=== PATIENT | female | born 1935 | race Two or more races ===

== ENCOUNTER 2016-09-02 10:53 | Inpatient (IN) | payer MEDICARE ==
[~2016-09-02 10:53] MED LIST: ADVAIR 25028 BLISTE1 INH; ADVAIR HFA 2301 PUFF INH; AMBIEN10 M1 PO; ASPIR-LOW81 M1 PO; AUGMENTIN XR 11 EACH PO; CODEINE-GUAIFE120 M1 PO; CYMBALTA60 M1 PO; FOLIC ACID0.8 M1 PO; HYDRALAZINE HCL50 M1 PO; HYDROXYCHLOROQ200 M2 PO; ISOSORBIDE MONO30 M4 PO; LANTUS SOL100 UNIT/1 SC; LOPRESSOR100 M1 PO; MULTIVITAMINS1 EAC6 PO; NEURONTIN600 M1 PO; NORCO 10-325 T1 EACH PO; NOVOLOG100 UNITS/ SC; NYSTATIN100000 UNI SSW; OMEPRAZOLE40 M2 PO; PACERONE200 M1 PO; PLAVIX75 M1 PO; PREDNISONE10 M1 PO; PREDNISONE2.5 M1 PO; RASUVO 1010 MG/0.2 SQ; SINGULAIR10 M1 PO; VITAMIN C500 M3 PO; VITAMIN D2000 UNIT PO; XANAX1 M1 PO; XARELTO15 M1 PO; ZESTRIL40 M2 PO; [UNRECOGNIZED DRUG - REMARK] PO
[2016-09-02] MEDS ORDERED: METHOTREXATE2.5 M1 PO (11:24)
[2016-09-02] MEDS ORDERED: PREDNISONE2.5 M1 PO (11:30)
[2016-09-02] MEDS ORDERED: HUMALOG100 UNIT/2 SC (11:32)
[2016-09-02] MEDS ORDERED: MACRODANTIN50 M2 PO (11:36)
[2016-09-02] MEDS ORDERED: MECLIZINE HCL12.5 M3 PO (11:37)
[2016-09-02] MEDS ORDERED: LASIX80 M1 PO (11:39)
[2016-09-02] MEDS ORDERED: PROTONIX40 M2 PO (11:40)
[2016-09-02] MEDS ORDERED: DOCUSATE SODIU100 M2 PO (11:44)
[2016-09-02] MEDS ORDERED: TYLENOL325 M2 PO (11:44)
[2016-09-02 11:48] LABS: URINE BILIRUBIN NEGATIVE (NEG); URINE BLOOD MODERATE (NEG); URINE GLUCOSE (UA) MODERATE (NEG); URINE KETONE NEGATIVE (NEG); URINE LEUKOCYTE ESTERASE POSITIVE (NEG); URINE NITRITE POSITIVE (NEG)
[2016-09-02 11:49] LABS: URINE APPEARANCE CLOUDY; URINE COLOR YELLOW; URINE SPECIFIC GRAVITY 1.016 (1.003-1.030)
[2016-09-02 11:55] LABS: URINE PROT SULFOSALICYLIC ACID 1+ (NEG)
[2016-09-02 11:56] LABS: URINE BACTERIA 4+; URINE EPITHELIAL CELLS 0 /[HPF] (0-10); URINE RBC 0-2 /[HPF] (0-5); URINE WBC FULL FIELD /[HPF] (0-5)
[2016-09-02 12:05] LABS: BASO % 0.2 % (0-2); EOS % 0.4 % (0-7); HCT-HEMATOCRIT 33.3 % (34.0-49.0); HGB-HEMOGLOBIN 10.4 gm/dl (12.0-15.5); IMMATURE GRANULOCYTES ABSOLUTE 0.02 tho/cmm (0-0.03); IMMATURE GRANULOCYTES PERCENT 0.2 % (0-0.3); LYMPH % 9.4 % (20-45); MCH (MEAN CORPUSCULAR HGB) 31.2 pg (28.0-32.0); MCHC MEAN CORPUSCULAR HGB CONC 31.2 % (32.0-36.0); MEAN PLATELET VOLUME 10.5 cmc (9.4-12.4); MONO % 5.2 % (0-12); MONOCYTE ABSOLUTE COUNT 0.6 tho/cmm (0.0-1.2); NEUTROPHIL ABSOLUTE COUNT 9.1 tho/cmm (1.6-8.0); NEUTROPHIL-AUTOMATED 9.1 tho/cmm (1.6-8.0); NEUTROPHILS % 84.6 % (40-80); PLATELET COUNT 297 tho/cmm (150-450); RED BLOOD COUNT 3.33 mil/cmm (4.00-5.20); RED CELL DISTRIBUTION WIDTH 15.5 % (12.4-16.4); WHITE BLOOD COUNT 10.8 tho/cmm (4.0-10.0)
[2016-09-02] MEDS ORDERED: FEOSOL325 M1 PO (12:20)
[2016-09-02] MEDS ORDERED: DILAUDID2 M1 PO (12:23)
[2016-09-02 12:35] LABS: ALBUMIN 3.8 g/dl (3.5-5.0); ALKALINE PHOSPHATASE 63 U/L (33-138); ALT/SGPT 26 U/L (12-78); ANION GAP 9 mmol/L (0-20); AST/SGOT 22 U/L (10-40); BILIRUBIN,TOTAL 0.6 mg/dl (0-1.5); BLOOD UREA NITROGEN 31 mg/dl (6-24); C-REACTIVE PROTEIN 10.3 mg/dl (0-0.9); CALCIUM 9.5 mg/dl (8.5-10.5); CARBON DIOXIDE-VENOUS 34 mmol/L (22-32); CHLORIDE 105 mmol/l (96-110); CREATININE 0.98 mg/dl (0.50-1.10); GLUCOSE 122 mg/dL (70-110); POTASSIUM 4.3 mmol/L (3.7-5.1); SODIUM 144 mmol/L (135-145); eGFR VALUE FOR BLACK >60 mL/Min
[2016-09-02 12:45] LABS: PROCALCITONIN 0.08 ng/ml (0.05-0.09)
[2016-09-02 13:29] LABS: INR 1.1 INR (0.9-1.1)
[2016-09-03 07:13] LABS: ANION GAP 10 mmol/L (0-20); BLOOD UREA NITROGEN 17 mg/dl (6-24); CALCIUM 8.7 mg/dl (8.5-10.5); CARBON DIOXIDE-VENOUS 33 mmol/L (22-32); CHLORIDE 105 mmol/l (96-110); CREATININE 0.75 mg/dl (0.50-1.10); GLUCOSE 160 mg/dL (70-110); POTASSIUM 4.6 mmol/L (3.7-5.1); SODIUM 143 mmol/L (135-145); eGFR VALUE FOR BLACK >60 mL/Min
[2016-09-03 07:16] LABS: BASO % 0.2 % (0-2); EOS % 1.5 % (0-7); EOSINOPHIL ABSOLUTE COUNT 0.1 tho/cmm (0.0-0.7); HCT-HEMATOCRIT 30.3 % (34.0-49.0); HGB-HEMOGLOBIN 9.4 gm/dl (12.0-15.5); IMMATURE GRANULOCYTES ABSOLUTE 0.01 tho/cmm (0-0.03); IMMATURE GRANULOCYTES PERCENT 0.2 % (0-0.3); LYMPH % 15.1 % (20-45); MCH (MEAN CORPUSCULAR HGB) 31.5 pg (28.0-32.0); MCV (MEAN CELL VOLUME) 101.7 fl (82.0-96.0); MEAN PLATELET VOLUME 10.8 cmc (9.4-12.4); MONO % 7.6 % (0-12); MONOCYTE ABSOLUTE COUNT 0.5 tho/cmm (0.0-1.2); NEUTROPHIL ABSOLUTE COUNT 4.9 tho/cmm (1.6-8.0); NEUTROPHIL-AUTOMATED 4.9 tho/cmm (1.6-8.0); NEUTROPHILS % 75.4 % (40-80); PLATELET COUNT 274 tho/cmm (150-450); RED BLOOD COUNT 2.98 mil/cmm (4.00-5.20); RED CELL DISTRIBUTION WIDTH 15.6 % (12.4-16.4); WHITE BLOOD COUNT 6.5 tho/cmm (4.0-10.0)
[2016-09-04 05:56] LABS: ANION GAP 10 mmol/L (0-20); CALCIUM 8.3 mg/dl (8.5-10.5); CARBON DIOXIDE-VENOUS 30 mmol/L (22-32); CHLORIDE 102 mmol/l (96-110); CREATININE 0.92 mg/dl (0.50-1.10); GLUCOSE 120 mg/dL (70-110); POTASSIUM 4.3 mmol/L (3.7-5.1); SODIUM 138 mmol/L (135-145); eGFR VALUE FOR BLACK >60 mL/Min
[2016-09-04 06:06] LABS: BLOOD UREA NITROGEN 29 mg/dl (6-24)
[2016-09-04] MEDS ORDERED: CIPRO250 M2 PO (13:52)
[2016-09-05] MEDS ORDERED: COMBIVENT RESPIM4 G1 INH (13:58)
[2016-09-05] MEDS ORDERED: SENOKOT-S TABL1 EACH PO (14:06)
[2016-09-05] MEDS ORDERED: ANALGESIC BALM30 G2 EXT (14:09)
[2016-09-05] MEDS ORDERED: KEFLEX500 M4 PO (14:11)
[2016-09-05] MEDS ORDERED: IPRAT-ALBUT 0.5-3 ML INH (14:12)
[2016-09-05] MEDS ORDERED: MELATONIN3 M4 PO (14:36)
[2016-09-05] MEDS ORDERED: IPRAT-ALBUT 0.5-3 ML PO (14:41)
[2016-12-30] MEDS ORDERED: AMBIEN10 M1 PO (10:17)
[2016-12-30] MEDS ORDERED: ASPIRIN EC81 MG PO (10:18)
[2016-12-30] MEDS ORDERED: BROVANA15 MCG/22 INH (10:18)
[2016-12-30] MEDS ORDERED: COREG25 M1 PO (10:19)
[2016-12-30] MEDS ORDERED: CYMBALTA30 M1 PO (10:19)
[2016-12-30] MEDS ORDERED: IPRAT-ALBUT 0.5-3 ML INH (10:20)
[2016-12-30] MEDS ORDERED: FEROSUL325 M1 PO (10:21)
[2016-12-30] MEDS ORDERED: NEURONTIN600 M1 PO (10:21)
[2016-12-30] MEDS ORDERED: FOLIC ACID1 M1 PO (10:21)
[2016-12-30] MEDS ORDERED: HYDRALAZINE HCL50 M1 PO (10:22)
[2016-12-30] MEDS ORDERED: PLAQUENIL200 M1 PO (10:23)
[2016-12-30] MEDS ORDERED: ISOSORBIDE MONO30 M4 PO (10:24)
[2016-12-30] MEDS ORDERED: PRINIVIL20 M1 PO (10:26)
[2016-12-30] MEDS ORDERED: LASIX80 M1 PO (10:26)
[2016-12-30] MEDS ORDERED: LEVEMIR100 UNITS/ SC (10:26)
[2016-12-30] MEDS ORDERED: MULTI VITAMIN1 EAC2 PO (10:31)
[2016-12-30] MEDS ORDERED: TREXALL10 M1 PO (10:31)
[2016-12-30] MEDS ORDERED: NOVOLOG100 UNITS/ SC ×2 (10:33)
[2016-12-30] MEDS ORDERED: SILVADENE20 G1 TP (10:34)
[2016-12-30] MEDS ORDERED: PROTONIX40 M2 PO (10:34)
[2016-12-30] MEDS ORDERED: PULMICORT0.5 MG/22 INH (10:34)
[2016-12-30] MEDS ORDERED: SINGULAIR10 M1 PO (10:35)
[2017-01-16] MEDS ORDERED: COLACE100 M1 PO (14:00)
[2017-01-16] MEDS ORDERED: LASIX20 M1 PO (14:02)
[2017-01-22] MEDS ORDERED: PRINIVIL10 M1 PO (09:49)
[2017-01-22] MEDS ORDERED: MELATONIN3 M4 PO (09:54)
[2017-01-22] MEDS ORDERED: MILK OF MAGNESIA PO (09:55)
[2017-01-22] MEDS ORDERED: MIRALAX17 G2 PO (09:56)
[2017-01-22] MEDS ORDERED: ULTRAM50 M1 PO (09:57)
[2017-01-22] MEDS ORDERED: TYLENOL325 M2 PO (09:59)
[2017-01-22] MEDS ORDERED: LEVEMIR100 UNITS/ SC (10:01)
[2017-01-22] MEDS ORDERED: SILVADENE20 G1 TOP (10:03)
[2017-01-28] MEDS ORDERED: LEVAQUIN750 M1 PO (10:26)
[2017-01-28] MEDS ORDERED: POTASSIUM CHLO20 ME3 PO (10:27)
[2017-01-28] MEDS ORDERED: LASIX20 M1 PO (10:27)
[2017-01-28] MEDS ORDERED: HUMALOG100 UNITS/ (10:46)
[2017-01-28] MEDS ORDERED: MUCINEX600 M1 PO (13:12)
== END 2016-09-05 14:50 | DRG 690 ==
LOC: EDMED 10:53 → EMR2 15:24 → 5WE 18:07
PROVIDERS: Emergency Medicine; ADMIT Hospitalist
DX: N39.0 Urinary tract infection, site not specified (principal); J96.11 Chronic respiratory failure with hypoxia; L03.115 Cellulitis of right lower limb; E11.40 Type 2 diabetes mellitus with diabetic neuropathy, unspecified; Z99.81 Dependence on supplemental oxygen; Z68.42 Body mass index [BMI] 45.0-49.9, adult; E86.0 Dehydration; I48.0 Paroxysmal atrial fibrillation; I10 Essential (primary) hypertension; B96.89 Other specified bacterial agents as the cause of diseases classified elsewhere; G89.4 Chronic pain syndrome; R60.9 Edema, unspecified; E66.9 Obesity, unspecified; D63.8 Anemia in other chronic diseases classified elsewhere; M06.9 Rheumatoid arthritis, unspecified; R29.6 Repeated falls; F32.9 Major depressive disorder, single episode, unspecified; J45.909 Unspecified asthma, uncomplicated; M54.5 Low back pain; I25.10 Atherosclerotic heart disease of native coronary artery without angina pectoris; R53.81 Other malaise; I87.8 Other specified disorders of veins; K59.00 Constipation, unspecified; S80.11XA Contusion of right lower leg, initial encounter; W19.XXXA Unspecified fall, initial encounter; Y92.009 Unspecified place in unspecified non-institutional (private) residence as the place of occurrence of the external cause; Z86.73 Personal history of transient ischemic attack (TIA), and cerebral infarction without residual deficits; Z79.899 Other long term (current) drug therapy; Z95.1 Presence of aortocoronary bypass graft; Z95.5 Presence of coronary angioplasty implant and graft; Z77.22 Contact with and (suspected) exposure to environmental tobacco smoke (acute) (chronic); Z92.25 Personal history of immunosuppression therapy; Z79.891 Long term (current) use of opiate analgesic; Z79.4 Long term (current) use of insulin; Z91.81 History of falling; Z79.01 Long term (current) use of anticoagulants
CPT/HCPCS: J0696; J1815; J3370; J7030; J7050; J7512; P9612

== ENCOUNTER 2016-12-18 18:25 | Inpatient (IN) | payer MEDICARE ==
[~2016-12-18 18:25] MED LIST changes: +ANALGESIC BALM30 G2 EXT; +CIPRO250 M2 PO; +COMBIVENT RESPIM4 G1 INH; +DILAUDID2 M1 PO; +DOCUSATE SODIU100 M2 PO; +FEOSOL325 M1 PO; +HUMALOG100 UNIT/2 SC; +IPRAT-ALBUT 0.5-3 ML INH; +IPRAT-ALBUT 0.5-3 ML PO; +KEFLEX500 M4 PO; +LASIX80 M1 PO; +MACRODANTIN50 M2 PO; +MECLIZINE HCL12.5 M3 PO; +MELATONIN3 M4 PO; +METHOTREXATE2.5 M1 PO; +PROTONIX40 M2 PO; +SENOKOT-S TABL1 EACH PO; +TYLENOL325 M2 PO
[2016-12-18 18:57] LABS: BASO % 0.2 % (0-2); EOS % 1.4 % (0-7); EOSINOPHIL ABSOLUTE COUNT 0.1 tho/cmm (0.0-0.7); HCT-HEMATOCRIT 28.3 % (34.0-49.0); HGB-HEMOGLOBIN 8.6 gm/dl (12.0-15.5); IMMATURE GRANULOCYTES ABSOLUTE 0.02 tho/cmm (0-0.03); IMMATURE GRANULOCYTES PERCENT 0.2 % (0-0.3); LYMPH % 18.6 % (20-45); LYMPH ABSOLUTE COUNT 1.8 tho/cmm (0.8-4.5); MCH (MEAN CORPUSCULAR HGB) 29.7 pg (28.0-32.0); MCHC MEAN CORPUSCULAR HGB CONC 30.4 % (32.0-36.0); MCV (MEAN CELL VOLUME) 97.6 fl (82.0-96.0); MEAN PLATELET VOLUME 10.8 cmc (9.4-12.4); MONOCYTE ABSOLUTE COUNT 1.5 tho/cmm (0.0-1.2); NEUTROPHILS % 63.6 % (40-80); PLATELET COUNT 220 tho/cmm (150-450); RED CELL DISTRIBUTION WIDTH 15.1 % (12.4-16.4); WHITE BLOOD COUNT 9.4 tho/cmm (4.0-10.0)
[2016-12-18 19:13] LABS: ALB/GLOB RATIO 0.7 (0.8-2.0); ALKALINE PHOSPHATASE 51 U/L (33-138); ALT/SGPT 21 U/L (12-78); ANION GAP 12 mmol/L (0-20); AST/SGOT 15 U/L (10-40); BILIRUBIN,TOTAL 0.5 mg/dl (0-1.5); BLOOD UREA NITROGEN 35 mg/dl (6-24); CALCIUM 8.9 mg/dl (8.5-10.5); CARBON DIOXIDE-VENOUS 33 mmol/L (22-32); CHLORIDE 100 mmol/l (96-110); CREATININE 1.35 mg/dl (0.50-1.10); GLUCOSE 102 mg/dL (70-110); POTASSIUM 4.3 mmol/L (3.7-5.1); SODIUM 141 mmol/L (135-145); eGFR VALUE FOR BLACK 43 mL/Min
[2016-12-18 19:20] LABS: URINE APPEARANCE CLEAR; URINE BILIRUBIN NEGATIVE (NEG); URINE BLOOD NEGATIVE (NEG); URINE COLOR YELLOW; URINE GLUCOSE (UA) NEGATIVE (NEG); URINE KETONE NEGATIVE (NEG); URINE LEUKOCYTE ESTERASE POSITIVE (NEG); URINE NITRITE NEGATIVE (NEG); URINE PROTEIN MODERATE (NEG)
[2016-12-18 19:24] LABS: URINE EPITHELIAL CELLS 0-1 /[HPF] (0-10); URINE RBC 0 /[HPF] (0-5); URINE WBC 0-2 /[HPF] (0-5)
[2016-12-18 19:30] LABS: PROCALCITONIN 0.18 ng/ml (0.05-0.09)
[2016-12-18] MEDS ORDERED: TYLENOL EXTRA500 M1 PO (20:08)
[2016-12-18 21:52] LABS: MAGNESIUM 2.1 mg/dl (1.8-2.6)
[2016-12-19 05:42] LABS: BASO % 0.3 % (0-2); EOS % 2.2 % (0-7); EOSINOPHIL ABSOLUTE COUNT 0.3 tho/cmm (0.0-0.7); HCT-HEMATOCRIT 27.8 % (34.0-49.0); HGB-HEMOGLOBIN 8.4 gm/dl (12.0-15.5); IMMATURE GRANULOCYTES ABSOLUTE 0.03 tho/cmm (0-0.03); IMMATURE GRANULOCYTES PERCENT 0.3 % (0-0.3); LYMPH % 15.3 % (20-45); LYMPH ABSOLUTE COUNT 1.7 tho/cmm (0.8-4.5); MCH (MEAN CORPUSCULAR HGB) 29.8 pg (28.0-32.0); MCHC MEAN CORPUSCULAR HGB CONC 30.2 % (32.0-36.0); MCV (MEAN CELL VOLUME) 98.6 fl (82.0-96.0); MEAN PLATELET VOLUME 10.9 cmc (9.4-12.4); MONO % 14.9 % (0-12); MONOCYTE ABSOLUTE COUNT 1.7 tho/cmm (0.0-1.2); NEUTROPHIL ABSOLUTE COUNT 7.5 tho/cmm (1.6-8.0); NEUTROPHIL-AUTOMATED 7.5 tho/cmm (1.6-8.0); PLATELET COUNT 206 tho/cmm (150-450); RED BLOOD COUNT 2.82 mil/cmm (4.00-5.20); RED CELL DISTRIBUTION WIDTH 15.3 % (12.4-16.4); WHITE BLOOD COUNT 11.2 tho/cmm (4.0-10.0)
[2016-12-19 05:57] LABS: BLOOD UREA NITROGEN 34 mg/dl (6-24); CALCIUM 8.9 mg/dl (8.5-10.5); CARBON DIOXIDE-VENOUS 30 mmol/L (22-32); CHLORIDE 104 mmol/l (96-110); CREATININE 1.27 mg/dl (0.50-1.10); SODIUM 140 mmol/L (135-145); eGFR VALUE FOR BLACK 46 mL/Min
[2016-12-19 06:02] LABS: ANION GAP 11 mmol/L (0-20); GLUCOSE 267 mg/dL (70-110); POTASSIUM 4.7 mmol/L (3.7-5.1)
--- NOTE | 2016-12-19 09:14 | NUR ---
VIRTUAL CARE NOTE: CHECKED IN ON PT AT THIS TIME. HAS NO FAMILY PRESENT. NOTED TREMORS, WHICH ARE NEW FOR PT. SOME ANXIETY WELL. RECIEVES PHONE CALL FROM FAMILY. WILL CONTINUE TO MONITOR. ORDERS FROM IMS TO CHECK LABWORK IN AM. AWAITING ROUNDS FROM SURGEON. ELECTRONIC CHART REVIEW. PT'S CALL LIGHT IS WITHIN REACH.
--- NOTE | 2016-12-19 20:22 | NUR ---
LUCAS AVELAR-VISITED WITH PATIENT AND SON KAI. PATIENT LAYING COMFORTABLY IN BED STAYING HER PAIN IS STAYING CONTROLLED. KAI HAS SIGNED THE CONSENT FOR THE I&D TOMORROW. WE DISCUSSED HER CONFUSION AND IT POSSIBLY BEING THE PAIN MEDS SO WILL TRY JUST TYLENOL TONIGHT UNLESS PATIENT IS IN A LOT OF PAIN. KAI SAID SHE IS MORE ALERT NOW AND SEEMS TO BE DOING BETTER WITH EXCEPTION OF BREATHING BEING A LITTLE LABORED. RT WAS JUST IN DOING A BREATHING TX. SANDY THE OTHER SON WILL BE HERE LATER TONIGHT WITH THE PATIENT.
[2016-12-20 04:49] LABS: BASO % 0.5 % (0-2); BASO ABSOLUTE COUNT 0.1 tho/cmm (0.0-0.2); EOS % 0.4 % (0-7); HGB-HEMOGLOBIN 8.2 gm/dl (12.0-15.5); IMMATURE GRANULOCYTES ABSOLUTE 0.02 tho/cmm (0-0.03); IMMATURE GRANULOCYTES PERCENT 0.2 % (0-0.3); LYMPH % 11.5 % (20-45); LYMPH ABSOLUTE COUNT 1.1 tho/cmm (0.8-4.5); MCH (MEAN CORPUSCULAR HGB) 29.9 pg (28.0-32.0); MCHC MEAN CORPUSCULAR HGB CONC 30.4 % (32.0-36.0); MCV (MEAN CELL VOLUME) 98.5 fl (82.0-96.0); MEAN PLATELET VOLUME 10.3 cmc (9.4-12.4); MONO % 13.1 % (0-12); MONOCYTE ABSOLUTE COUNT 1.2 tho/cmm (0.0-1.2); NEUTROPHIL ABSOLUTE COUNT 6.9 tho/cmm (1.6-8.0); NEUTROPHIL-AUTOMATED 6.9 tho/cmm (1.6-8.0); NEUTROPHILS % 74.3 % (40-80); PLATELET COUNT 219 tho/cmm (150-450); RED BLOOD COUNT 2.74 mil/cmm (4.00-5.20); RED CELL DISTRIBUTION WIDTH 15.4 % (12.4-16.4); WHITE BLOOD COUNT 9.3 tho/cmm (4.0-10.0)
[2016-12-20 05:04] LABS: ANION GAP 11 mmol/L (0-20); BLOOD UREA NITROGEN 28 mg/dl (6-24); CALCIUM 9.1 mg/dl (8.5-10.5); CARBON DIOXIDE-VENOUS 32 mmol/L (22-32); CHLORIDE 107 mmol/l (96-110); CREATININE 1.04 mg/dl (0.50-1.10); GLUCOSE 144 mg/dL (70-110); POTASSIUM 4.2 mmol/L (3.7-5.1); SODIUM 146 mmol/L (135-145); eGFR VALUE FOR BLACK 58 mL/Min
[2016-12-20 14:46] LABS: ABG CO2 ARTERIAL 32 mmol/L (21-27); ARTERIAL BLD GAS O2 SATURATION 96 % (95-98); ARTERIAL BLOOD GAS PCO2 44 mmHg (32-45); ARTERIAL PO2 69 mmHg (70-100); BICARBONATE 31 mmol/L (21-28); BLOOD GAS BASE EXCESS 7 mM/L (-/+3); PH 7.46 Units (7.35-7.45)
[2016-12-20 16:40] LABS: ALB/GLOB RATIO 0.6 (0.8-2.0); ALBUMIN 2.9 g/dl (3.5-5.0); ALKALINE PHOSPHATASE 61 U/L (33-138); ALT/SGPT 20 U/L (12-78); ANION GAP 14 mmol/L (0-20); AST/SGOT 15 U/L (10-40); BLOOD UREA NITROGEN 25 mg/dl (6-24); CALCIUM 9.4 mg/dl (8.5-10.5); CARBON DIOXIDE-VENOUS 30 mmol/L (22-32); CHLORIDE 105 mmol/l (96-110); CREATININE 0.99 mg/dl (0.50-1.10); POTASSIUM 4.1 mmol/L (3.7-5.1); SODIUM 145 mmol/L (135-145); eGFR VALUE FOR BLACK 62 mL/Min
[2016-12-20 16:42] LABS: BILIRUBIN,TOTAL 0.8 mg/dl (0-1.5); GLUCOSE 258 mg/dL (70-110)
[2016-12-20 16:48] LABS: BASO % 0.3 % (0-2); EOS % 0.2 % (0-7); HCT-HEMATOCRIT 27.9 % (34.0-49.0); HGB-HEMOGLOBIN 8.4 gm/dl (12.0-15.5); IMMATURE GRANULOCYTES ABSOLUTE 0.02 tho/cmm (0-0.03); IMMATURE GRANULOCYTES PERCENT 0.2 % (0-0.3); LYMPH ABSOLUTE COUNT 1.4 tho/cmm (0.8-4.5); MCH (MEAN CORPUSCULAR HGB) 29.7 pg (28.0-32.0); MCHC MEAN CORPUSCULAR HGB CONC 30.1 % (32.0-36.0); MCV (MEAN CELL VOLUME) 98.6 fl (82.0-96.0); MEAN PLATELET VOLUME 10.7 cmc (9.4-12.4); MONOCYTE ABSOLUTE COUNT 1.3 tho/cmm (0.0-1.2); NEUTROPHIL ABSOLUTE COUNT 8.7 tho/cmm (1.6-8.0); NEUTROPHIL-AUTOMATED 8.7 tho/cmm (1.6-8.0); NEUTROPHILS % 76.3 % (40-80); PLATELET COUNT 228 tho/cmm (150-450); RED BLOOD COUNT 2.83 mil/cmm (4.00-5.20); RED CELL DISTRIBUTION WIDTH 15.2 % (12.4-16.4); WHITE BLOOD COUNT 11.4 tho/cmm (4.0-10.0)
[2016-12-20 16:57] LABS: PROCALCITONIN 0.18 ng/ml (0.05-0.09)
[2016-12-21 01:02] LABS: ABG CO2 ARTERIAL 37 mmol/L (21-27); ARTERIAL BLD GAS O2 SATURATION 96 % (95-98); ARTERIAL BLOOD GAS PCO2 50 mmHg (32-45); ARTERIAL PO2 80 mmHg (70-100); BICARBONATE 35 mmol/L (21-28); BLOOD GAS BASE EXCESS 11 mM/L (-/+3); PH 7.46 Units (7.35-7.45)
[2016-12-21 04:53] LABS: ABG CO2 ARTERIAL 36 mmol/L (21-27); ARTERIAL BLD GAS O2 SATURATION 97 % (95-98); ARTERIAL BLOOD GAS PCO2 50 mmHg (32-45); ARTERIAL PO2 87 mmHg (70-100); BICARBONATE 35 mmol/L (21-28); BLOOD GAS BASE EXCESS 10 mM/L (-/+3); PH 7.46 Units (7.35-7.45)
[2016-12-21 05:05] LABS: ANION GAP 12 mmol/L (0-20); BLOOD UREA NITROGEN 23 mg/dl (6-24); CALCIUM 9.4 mg/dl (8.5-10.5); CARBON DIOXIDE-VENOUS 33 mmol/L (22-32); CHLORIDE 101 mmol/l (96-110); CREATININE 1.08 mg/dl (0.50-1.10); GLUCOSE 312 mg/dL (70-110); POTASSIUM 4.1 mmol/L (3.7-5.1); SODIUM 142 mmol/L (135-145); eGFR VALUE FOR BLACK 56 mL/Min
[2016-12-22 05:21] LABS: BASO % 0.3 % (0-2); EOS % 0.2 % (0-7); HCT-HEMATOCRIT 27.7 % (34.0-49.0); HGB-HEMOGLOBIN 8.5 gm/dl (12.0-15.5); IMMATURE GRANULOCYTES ABSOLUTE 0.03 tho/cmm (0-0.03); IMMATURE GRANULOCYTES PERCENT 0.3 % (0-0.3); LYMPH % 8.3 % (20-45); LYMPH ABSOLUTE COUNT 0.8 tho/cmm (0.8-4.5); MCH (MEAN CORPUSCULAR HGB) 29.5 pg (28.0-32.0); MCHC MEAN CORPUSCULAR HGB CONC 30.7 % (32.0-36.0); MCV (MEAN CELL VOLUME) 96.2 fl (82.0-96.0); MEAN PLATELET VOLUME 10.8 cmc (9.4-12.4); MONO % 13.3 % (0-12); MONOCYTE ABSOLUTE COUNT 1.3 tho/cmm (0.0-1.2); NEUTROPHIL ABSOLUTE COUNT 7.4 tho/cmm (1.6-8.0); NEUTROPHIL-AUTOMATED 7.4 tho/cmm (1.6-8.0); NEUTROPHILS % 77.6 % (40-80); PLATELET COUNT 266 tho/cmm (150-450); RED BLOOD COUNT 2.88 mil/cmm (4.00-5.20); RED CELL DISTRIBUTION WIDTH 15.1 % (12.4-16.4); WHITE BLOOD COUNT 9.6 tho/cmm (4.0-10.0)
[2016-12-22 05:26] LABS: ANION GAP 10 mmol/L (0-20); BLOOD UREA NITROGEN 32 mg/dl (6-24); CARBON DIOXIDE-VENOUS 35 mmol/L (22-32); CHLORIDE 98 mmol/l (96-110); CREATININE 1.22 mg/dl (0.50-1.10); GLUCOSE 313 mg/dL (70-110); MAGNESIUM 1.9 mg/dl (1.8-2.6); POTASSIUM 3.6 mmol/L (3.7-5.1); SODIUM 139 mmol/L (135-145); eGFR VALUE FOR BLACK 48 mL/Min
[2016-12-22 11:17] LABS: ARTERIAL BLD GAS O2 SATURATION 96 % (95-98); ARTERIAL BLOOD GAS PCO2 57 mmHg (32-45); ARTERIAL PO2 84 mmHg (70-100); BICARBONATE 39 mmol/L (21-28); BLOOD GAS BASE EXCESS 13 mM/L (-/+3); PH 7.44 Units (7.35-7.45)
[2016-12-22 11:19] LABS: ABG CO2 ARTERIAL 40 mmol/L (21-27)
[2016-12-23 05:53] LABS: ANION GAP 11 mmol/L (0-20); BLOOD UREA NITROGEN 32 mg/dl (6-24); CALCIUM 9.1 mg/dl (8.5-10.5); CARBON DIOXIDE-VENOUS 38 mmol/L (22-32); CHLORIDE 98 mmol/l (96-110); CREATININE 0.95 mg/dl (0.50-1.10); POTASSIUM 3.2 mmol/L (3.7-5.1); SODIUM 144 mmol/L (135-145); eGFR VALUE FOR BLACK 65 mL/Min
[2016-12-23 05:58] LABS: GLUCOSE 100 mg/dL (70-110)
[2016-12-24 06:18] LABS: ALB/GLOB RATIO 0.6 (0.8-2.0); ALBUMIN 2.6 g/dl (3.5-5.0); ALKALINE PHOSPHATASE 46 U/L (33-138); ALT/SGPT 21 U/L (12-78); ANION GAP 12 mmol/L (0-20); AST/SGOT 13 U/L (10-40); BILIRUBIN,TOTAL 0.4 mg/dl (0-1.5); BLOOD UREA NITROGEN 34 mg/dl (6-24); CALCIUM 9.1 mg/dl (8.5-10.5); CARBON DIOXIDE-VENOUS 35 mmol/L (22-32); CHLORIDE 98 mmol/l (96-110); CREATININE 0.94 mg/dl (0.50-1.10); POTASSIUM 3.5 mmol/L (3.7-5.1); SODIUM 141 mmol/L (135-145); eGFR VALUE FOR BLACK 66 mL/Min
[2016-12-24 06:22] LABS: GLUCOSE 69 mg/dL (70-110)
[2016-12-25 05:45] LABS: BASO % 0.2 % (0-2); EOS % 0.9 % (0-7); EOSINOPHIL ABSOLUTE COUNT 0.1 tho/cmm (0.0-0.7); IMMATURE GRANULOCYTES ABSOLUTE 0.03 tho/cmm (0-0.03); IMMATURE GRANULOCYTES PERCENT 0.4 % (0-0.3); LYMPH % 17.6 % (20-45); LYMPH ABSOLUTE COUNT 1.4 tho/cmm (0.8-4.5); MCH (MEAN CORPUSCULAR HGB) 29.3 pg (28.0-32.0); MCHC MEAN CORPUSCULAR HGB CONC 30.8 % (32.0-36.0); MCV (MEAN CELL VOLUME) 95.2 fl (82.0-96.0); MEAN PLATELET VOLUME 10.1 cmc (9.4-12.4); MONO % 10.5 % (0-12); MONOCYTE ABSOLUTE COUNT 0.9 tho/cmm (0.0-1.2); NEUTROPHIL ABSOLUTE COUNT 5.7 tho/cmm (1.6-8.0); NEUTROPHIL-AUTOMATED 5.7 tho/cmm (1.6-8.0); NEUTROPHILS % 70.4 % (40-80); PLATELET COUNT 328 tho/cmm (150-450); RED BLOOD COUNT 2.73 mil/cmm (4.00-5.20); RED CELL DISTRIBUTION WIDTH 15.5 % (12.4-16.4); WHITE BLOOD COUNT 8.1 tho/cmm (4.0-10.0)
[2016-12-25 05:59] LABS: ANION GAP 10 mmol/L (0-20); BLOOD UREA NITROGEN 34 mg/dl (6-24); CALCIUM 9.1 mg/dl (8.5-10.5); CARBON DIOXIDE-VENOUS 34 mmol/L (22-32); CHLORIDE 103 mmol/l (96-110); CREATININE 0.92 mg/dl (0.50-1.10); POTASSIUM 3.9 mmol/L (3.7-5.1); SODIUM 143 mmol/L (135-145); eGFR VALUE FOR BLACK 68 mL/Min
[2016-12-25 06:05] LABS: GLUCOSE 66 mg/dL (70-110)
[2016-12-30] MEDS ORDERED: AMBIEN10 M1 PO (10:17)
[2016-12-30] MEDS ORDERED: ASPIRIN EC81 MG PO (10:18)
[2016-12-30] MEDS ORDERED: BROVANA15 MCG/22 INH (10:18)
[2016-12-30] MEDS ORDERED: CYMBALTA30 M1 PO (10:19)
[2016-12-30] MEDS ORDERED: COREG25 M1 PO (10:19)
[2016-12-30] MEDS ORDERED: IPRAT-ALBUT 0.5-3 ML INH (10:20)
[2016-12-30] MEDS ORDERED: NEURONTIN600 M1 PO (10:21)
[2016-12-30] MEDS ORDERED: FOLIC ACID1 M1 PO (10:21)
[2016-12-30] MEDS ORDERED: FEROSUL325 M1 PO (10:21)
[2016-12-30] MEDS ORDERED: HYDRALAZINE HCL50 M1 PO (10:22)
[2016-12-30] MEDS ORDERED: PLAQUENIL200 M1 PO (10:23)
[2016-12-30] MEDS ORDERED: ISOSORBIDE MONO30 M4 PO (10:24)
[2016-12-30] MEDS ORDERED: LEVEMIR100 UNITS/ SC (10:26)
[2016-12-30] MEDS ORDERED: LASIX80 M1 PO (10:26)
[2016-12-30] MEDS ORDERED: PRINIVIL20 M1 PO (10:26)
[2016-12-30] MEDS ORDERED: TREXALL10 M1 PO (10:31)
[2016-12-30] MEDS ORDERED: MULTI VITAMIN1 EAC2 PO (10:31)
[2016-12-30] MEDS ORDERED: NOVOLOG100 UNITS/ SC ×2 (10:33)
[2016-12-30] MEDS ORDERED: PROTONIX40 M2 PO (10:34)
[2016-12-30] MEDS ORDERED: PULMICORT0.5 MG/22 INH (10:34)
[2016-12-30] MEDS ORDERED: SILVADENE20 G1 TP (10:34)
[2016-12-30] MEDS ORDERED: SINGULAIR10 M1 PO (10:35)
[2017-01-16] MEDS ORDERED: COLACE100 M1 PO (14:00)
[2017-01-16] MEDS ORDERED: LASIX20 M1 PO (14:02)
[2017-01-22] MEDS ORDERED: PRINIVIL10 M1 PO (09:49)
[2017-01-22] MEDS ORDERED: MELATONIN3 M4 PO (09:54)
[2017-01-22] MEDS ORDERED: MILK OF MAGNESIA PO (09:55)
[2017-01-22] MEDS ORDERED: MIRALAX17 G2 PO (09:56)
[2017-01-22] MEDS ORDERED: ULTRAM50 M1 PO (09:57)
[2017-01-22] MEDS ORDERED: TYLENOL325 M2 PO (09:59)
[2017-01-22] MEDS ORDERED: LEVEMIR100 UNITS/ SC (10:01)
[2017-01-22] MEDS ORDERED: SILVADENE20 G1 TOP (10:03)
[2017-01-28] MEDS ORDERED: LEVAQUIN750 M1 PO (10:26)
[2017-01-28] MEDS ORDERED: LASIX20 M1 PO (10:27)
[2017-01-28] MEDS ORDERED: POTASSIUM CHLO20 ME3 PO (10:27)
[2017-01-28] MEDS ORDERED: HUMALOG100 UNITS/ (10:46)
[2017-01-28] MEDS ORDERED: MUCINEX600 M1 PO (13:12)
== END 2016-12-25 14:07 | DRG 853 ==
LOC: EDMED 18:25 → EMR2 20:58 → 5WD 22:20 → ORW 12-20 07:20 → 5WD 12-20 08:20 → PCUA 12-20 18:05
PROVIDERS: Emergency Medicine; Family Medicine; Internal Medicine; Internal Medicine Cardiovascular Disease; Internal Medicine Pulmonary Disease; Nurse Practitioner Adult Health; ADMIT Family Medicine
PROC: B24BZZZ Ultrasonography of Heart with Aorta (ICD-10-PCS; 2016-12-19)
PROC: 0JBP0ZZ Excision of Left Lower Leg Subcutaneous Tissue and Fascia, Open Approach (ICD-10-PCS; principal; 2016-12-20)
DX: A41.9 Sepsis, unspecified organism (principal); J96.21 Acute and chronic respiratory failure with hypoxia; I50.33 Acute on chronic diastolic (congestive) heart failure; E11.65 Type 2 diabetes mellitus with hyperglycemia; I27.2 Other secondary pulmonary hypertension; D68.62 Lupus anticoagulant syndrome; L02.416 Cutaneous abscess of left lower limb; J44.1 Chronic obstructive pulmonary disease with (acute) exacerbation; Z68.42 Body mass index [BMI] 45.0-49.9, adult; S80.12XA Contusion of left lower leg, initial encounter; I11.0 Hypertensive heart disease with heart failure; I25.10 Atherosclerotic heart disease of native coronary artery without angina pectoris; E87.6 Hypokalemia; R25.1 Tremor, unspecified; D64.9 Anemia, unspecified; M06.9 Rheumatoid arthritis, unspecified; I48.0 Paroxysmal atrial fibrillation; Y92.121 Bathroom in nursing home as the place of occurrence of the external cause; W18.30XA Fall on same level, unspecified, initial encounter; Y93.E8 Activity, other personal hygiene; Z95.5 Presence of coronary angioplasty implant and graft; Z95.1 Presence of aortocoronary bypass graft; Z91.81 History of falling; Z79.02 Long term (current) use of antithrombotics/antiplatelets; Z79.82 Long term (current) use of aspirin; Z79.4 Long term (current) use of insulin; Z79.899 Other long term (current) drug therapy; E66.01 Morbid (severe) obesity due to excess calories; Z86.73 Personal history of transient ischemic attack (TIA), and cerebral infarction without residual deficits
CPT/HCPCS: C8929; J1815; J1940; J2543; J3370; J7030; J7512; P9612

== ENCOUNTER 2017-01-04 03:35 | Inpatient (IN) | payer MEDICARE, OTHER ==
[~2017-01-04 03:35] MED LIST changes: +ASPIRIN EC81 MG PO; +BROVANA15 MCG/22 INH; +COREG25 M1 PO; +CYMBALTA30 M1 PO; +FEROSUL325 M1 PO; +FOLIC ACID1 M1 PO; +LEVEMIR100 UNITS/ SC; +MULTI VITAMIN1 EAC2 PO; +PLAQUENIL200 M1 PO; +PRINIVIL20 M1 PO; +PULMICORT0.5 MG/22 INH; +SILVADENE20 G1 TP; +TREXALL10 M1 PO; +TYLENOL EXTRA500 M1 PO
[2017-01-04] MEDS ORDERED: CYMBALTA60 M1 PO (04:00)
[2017-01-04] MEDS ORDERED: XARELTO15 M1 PO (04:06)
[2017-01-04] MEDS ORDERED: ULTRAM50 M1 PO (04:06)
[2017-01-04 04:28] LABS: BASO % 0.2 % (0-2); EOS % 2.7 % (0-7); EOSINOPHIL ABSOLUTE COUNT 0.2 tho/cmm (0.0-0.7); HGB-HEMOGLOBIN 7.4 gm/dl (12.0-15.5); IMMATURE GRANULOCYTES ABSOLUTE 0.02 tho/cmm (0-0.03); IMMATURE GRANULOCYTES PERCENT 0.2 % (0-0.3); LYMPH % 13.4 % (20-45); LYMPH ABSOLUTE COUNT 1.1 tho/cmm (0.8-4.5); MCH (MEAN CORPUSCULAR HGB) 29.6 pg (28.0-32.0); MCV (MEAN CELL VOLUME) 95.6 fl (82.0-96.0); MEAN PLATELET VOLUME 10.4 cmc (9.4-12.4); MONO % 11.9 % (0-12); NEUTROPHIL ABSOLUTE COUNT 5.9 tho/cmm (1.6-8.0); NEUTROPHIL-AUTOMATED 5.9 tho/cmm (1.6-8.0); NEUTROPHILS % 71.6 % (40-80); PLATELET COUNT 315 tho/cmm (150-450); WHITE BLOOD COUNT 8.2 tho/cmm (4.0-10.0)
[2017-01-04 04:30] LABS: HCT-HEMATOCRIT 23.9 % (34.0-49.0)
[2017-01-04 04:41] LABS: ABG CO2 ARTERIAL 31 mmol/L (21-27); ARTERIAL BLD GAS O2 SATURATION 98 % (95-98); ARTERIAL BLOOD GAS PCO2 55 mmHg (32-45); ARTERIAL PO2 131 mmHg (70-100); BICARBONATE 29 mmol/L (21-28); BLOOD GAS BASE EXCESS 4 mM/L (-/+3); PH 7.35 Units (7.35-7.45)
[2017-01-04 04:44] LABS: ALB/GLOB RATIO 0.8 (0.8-2.0); ALBUMIN 3.1 g/dl (3.5-5.0); ALKALINE PHOSPHATASE 56 U/L (33-138); ALT/SGPT 20 U/L (12-78); ANION GAP 12 mmol/L (0-20); AST/SGOT 12 U/L (10-40); BILIRUBIN,TOTAL 0.5 mg/dl (0-1.5); BLOOD UREA NITROGEN 56 mg/dl (6-24); CALCIUM 9.1 mg/dl (8.5-10.5); CARBON DIOXIDE-VENOUS 31 mmol/L (22-32); CHLORIDE 100 mmol/l (96-110); CREATININE 1.98 mg/dl (0.50-1.10); GLUCOSE 126 mg/dL (70-110); LIPASE 119 U/L (73-393); POTASSIUM 5.5 mmol/L (3.7-5.1); SODIUM 137 mmol/L (135-145); eGFR VALUE FOR BLACK 27 mL/Min
[2017-01-04 04:53] LABS: URINE BILIRUBIN NEGATIVE (NEG); URINE BLOOD NEGATIVE (NEG); URINE GLUCOSE (UA) NEGATIVE (NEG); URINE KETONE NEGATIVE (NEG); URINE LEUKOCYTE ESTERASE POSITIVE (NEG); URINE NITRITE NEGATIVE (NEG); URINE PROTEIN NEGATIVE (NEG); URINE SPECIFIC GRAVITY 1.015 (1.003-1.030)
[2017-01-04 04:54] LABS: URINE APPEARANCE CLEAR; URINE COLOR YELLOW
[2017-01-04 05:04] LABS: URINE RBC 0 /[HPF] (0-5)
[2017-01-04 05:40] LABS: PROCALCITONIN <0.05 ng/ml (0.05-0.09)
[2017-01-04] MEDS ORDERED: IPRAT-ALBUT 0.5-3 ML INH (08:40)
[2017-01-04] MEDS ORDERED: MELATONIN3 M4 PO (08:42)
[2017-01-04] MEDS ORDERED: MILK OF MAGNESIA PO (08:43)
[2017-01-04] MEDS ORDERED: ROPINIROLE HC0.25 M1 PO (08:46)
[2017-01-04] MEDS ORDERED: TYLENOL325 M2 PO (08:48)
[2017-01-04] MEDS ORDERED: VITAMIN D32000 UNI3 PO (08:49)
[2017-01-04 23:31] LABS: HCT-HEMATOCRIT 28.8 % (34.0-49.0); HGB-HEMOGLOBIN 9.2 gm/dl (12.0-15.5); MCV (MEAN CELL VOLUME) 93.2 fl (82.0-96.0); RED CELL DISTRIBUTION WIDTH 16.3 % (12.4-16.4)
[2017-01-05 04:43] LABS: ABG CO2 ARTERIAL 34 mmol/L (21-27); ARTERIAL BLD GAS O2 SATURATION 99 % (95-98); ARTERIAL BLOOD GAS PCO2 57 mmHg (32-45); ARTERIAL PO2 132 mmHg (70-100); BICARBONATE 33 mmol/L (21-28); BLOOD GAS BASE EXCESS 7 mM/L (-/+3); PH 7.38 Units (7.35-7.45)
[2017-01-05 05:15] LABS: BASO % 0.2 % (0-2); EOS % 0.9 % (0-7); EOSINOPHIL ABSOLUTE COUNT 0.1 tho/cmm (0.0-0.7); HGB-HEMOGLOBIN 9.1 gm/dl (12.0-15.5); IMMATURE GRANULOCYTES ABSOLUTE 0.02 tho/cmm (0-0.03); IMMATURE GRANULOCYTES PERCENT 0.2 % (0-0.3); LYMPH % 11.7 % (20-45); LYMPH ABSOLUTE COUNT 1.1 tho/cmm (0.8-4.5); MCH (MEAN CORPUSCULAR HGB) 29.4 pg (28.0-32.0); MCHC MEAN CORPUSCULAR HGB CONC 31.4 % (32.0-36.0); MCV (MEAN CELL VOLUME) 93.9 fl (82.0-96.0); MONO % 5.5 % (0-12); MONOCYTE ABSOLUTE COUNT 0.5 tho/cmm (0.0-1.2); NEUTROPHIL ABSOLUTE COUNT 7.5 tho/cmm (1.6-8.0); NEUTROPHIL-AUTOMATED 7.5 tho/cmm (1.6-8.0); NEUTROPHILS % 81.5 % (40-80); PLATELET COUNT 299 tho/cmm (150-450); RED BLOOD COUNT 3.09 mil/cmm (4.00-5.20); RED CELL DISTRIBUTION WIDTH 16.7 % (12.4-16.4); WHITE BLOOD COUNT 9.2 tho/cmm (4.0-10.0)
[2017-01-05 05:37] LABS: ALB/GLOB RATIO 0.7 (0.8-2.0); ALBUMIN 2.9 g/dl (3.5-5.0); ALKALINE PHOSPHATASE 57 U/L (33-138); ALT/SGPT 18 U/L (12-78); AST/SGOT 12 U/L (10-40); BILIRUBIN,TOTAL 0.6 mg/dl (0-1.5); BLOOD UREA NITROGEN 36 mg/dl (6-24); CALCIUM 8.9 mg/dl (8.5-10.5); CARBON DIOXIDE-VENOUS 31 mmol/L (22-32); CHLORIDE 100 mmol/l (96-110); MAGNESIUM 1.7 mg/dl (1.8-2.6); PHOSPHOROUS 4.1 mg/dl (2.5-4.9); SODIUM 139 mmol/L (135-145); eGFR VALUE FOR BLACK 47 mL/Min
[2017-01-05 05:39] LABS: C-REACTIVE PROTEIN 6.2 mg/dl (0-0.9)
[2017-01-05 05:44] LABS: ANION GAP 13 mmol/L (0-20); CREATININE 1.25 mg/dl (0.50-1.10); GLUCOSE 266 mg/dL (70-110); POTASSIUM 4.6 mmol/L (3.7-5.1)
[2017-01-06 04:50] LABS: ABG CO2 ARTERIAL 37 mmol/L (21-27); ARTERIAL BLD GAS O2 SATURATION 98 % (95-98); ARTERIAL BLOOD GAS PCO2 60 mmHg (32-45); BICARBONATE 35 mmol/L (21-28); BLOOD GAS BASE EXCESS 9 mM/L (-/+3); PH 7.39 Units (7.35-7.45)
[2017-01-06 04:51] LABS: ARTERIAL PO2 109 mmHg (70-100)
[2017-01-06 05:19] LABS: BASO % 0.3 % (0-2); EOS % 2.1 % (0-7); EOSINOPHIL ABSOLUTE COUNT 0.2 tho/cmm (0.0-0.7); HCT-HEMATOCRIT 28.9 % (34.0-49.0); HGB-HEMOGLOBIN 8.9 gm/dl (12.0-15.5); IMMATURE GRANULOCYTES ABSOLUTE 0.01 tho/cmm (0-0.03); IMMATURE GRANULOCYTES PERCENT 0.1 % (0-0.3); LYMPH % 12.1 % (20-45); LYMPH ABSOLUTE COUNT 0.9 tho/cmm (0.8-4.5); MCH (MEAN CORPUSCULAR HGB) 29.5 pg (28.0-32.0); MCHC MEAN CORPUSCULAR HGB CONC 30.8 % (32.0-36.0); MCV (MEAN CELL VOLUME) 95.7 fl (82.0-96.0); MEAN PLATELET VOLUME 10.7 cmc (9.4-12.4); MONOCYTE ABSOLUTE COUNT 0.5 tho/cmm (0.0-1.2); NEUTROPHIL ABSOLUTE COUNT 6.1 tho/cmm (1.6-8.0); NEUTROPHIL-AUTOMATED 6.1 tho/cmm (1.6-8.0); NEUTROPHILS % 79.4 % (40-80); PLATELET COUNT 275 tho/cmm (150-450); RED BLOOD COUNT 3.02 mil/cmm (4.00-5.20); RED CELL DISTRIBUTION WIDTH 16.6 % (12.4-16.4); WHITE BLOOD COUNT 7.7 tho/cmm (4.0-10.0)
[2017-01-06 05:35] LABS: ANION GAP 10 mmol/L (0-20); BLOOD UREA NITROGEN 23 mg/dl (6-24); CALCIUM 9.4 mg/dl (8.5-10.5); CARBON DIOXIDE-VENOUS 35 mmol/L (22-32); CHLORIDE 102 mmol/l (96-110); CREATININE 0.84 mg/dl (0.50-1.10); GLUCOSE 137 mg/dL (70-110); POTASSIUM 4.3 mmol/L (3.7-5.1); SODIUM 143 mmol/L (135-145); eGFR VALUE FOR BLACK 76 mL/Min
[2017-01-07 05:22] LABS: BASO % 0.3 % (0-2); EOS % 5.1 % (0-7); EOSINOPHIL ABSOLUTE COUNT 0.3 tho/cmm (0.0-0.7); HCT-HEMATOCRIT 26.9 % (34.0-49.0); HGB-HEMOGLOBIN 8.3 gm/dl (12.0-15.5); IMMATURE GRANULOCYTES ABSOLUTE 0.01 tho/cmm (0-0.03); IMMATURE GRANULOCYTES PERCENT 0.2 % (0-0.3); LYMPH % 14.1 % (20-45); LYMPH ABSOLUTE COUNT 0.9 tho/cmm (0.8-4.5); MCH (MEAN CORPUSCULAR HGB) 29.5 pg (28.0-32.0); MCHC MEAN CORPUSCULAR HGB CONC 30.9 % (32.0-36.0); MCV (MEAN CELL VOLUME) 95.7 fl (82.0-96.0); MEAN PLATELET VOLUME 10.6 cmc (9.4-12.4); MONO % 5.7 % (0-12); MONOCYTE ABSOLUTE COUNT 0.4 tho/cmm (0.0-1.2); NEUTROPHIL ABSOLUTE COUNT 4.6 tho/cmm (1.6-8.0); NEUTROPHIL-AUTOMATED 4.6 tho/cmm (1.6-8.0); NEUTROPHILS % 74.6 % (40-80); PLATELET COUNT 264 tho/cmm (150-450); RED BLOOD COUNT 2.81 mil/cmm (4.00-5.20); RED CELL DISTRIBUTION WIDTH 16.1 % (12.4-16.4); WHITE BLOOD COUNT 6.1 tho/cmm (4.0-10.0)
[2017-01-07 05:31] LABS: ANION GAP 11 mmol/L (0-20); BLOOD UREA NITROGEN 19 mg/dl (6-24); CARBON DIOXIDE-VENOUS 34 mmol/L (22-32); CHLORIDE 99 mmol/l (96-110); CREATININE 0.78 mg/dl (0.50-1.10); GLUCOSE 130 mg/dL (70-110); POTASSIUM 3.8 mmol/L (3.7-5.1); SODIUM 140 mmol/L (135-145); eGFR VALUE FOR BLACK 83 mL/Min
[2017-01-07 05:52] LABS: PROCALCITONIN 0.11 ng/ml (0.05-0.09)
[2017-01-07] MEDS ORDERED: HYDRALAZINE HCL50 M1 PO (10:07)
[2017-01-07] MEDS ORDERED: NORVASC10 M2 PO (10:08)
[2017-01-07] MEDS ORDERED: HYDROCHLOROTH12.5 M2 PO (10:10)
[2017-01-07] MEDS ORDERED: MIRALAX17 G2 PO (10:11)
[2017-01-16] MEDS ORDERED: COLACE100 M1 PO (14:00)
[2017-01-16] MEDS ORDERED: LASIX20 M1 PO (14:02)
[2017-01-22] MEDS ORDERED: PRINIVIL10 M1 PO (09:49)
[2017-01-22] MEDS ORDERED: MELATONIN3 M4 PO (09:54)
[2017-01-22] MEDS ORDERED: MILK OF MAGNESIA PO (09:55)
[2017-01-22] MEDS ORDERED: MIRALAX17 G2 PO (09:56)
[2017-01-22] MEDS ORDERED: ULTRAM50 M1 PO (09:57)
[2017-01-22] MEDS ORDERED: TYLENOL325 M2 PO (09:59)
[2017-01-22] MEDS ORDERED: LEVEMIR100 UNITS/ SC (10:01)
[2017-01-22] MEDS ORDERED: SILVADENE20 G1 TOP (10:03)
[2017-01-28] MEDS ORDERED: LEVAQUIN750 M1 PO (10:26)
[2017-01-28] MEDS ORDERED: POTASSIUM CHLO20 ME3 PO (10:27)
[2017-01-28] MEDS ORDERED: LASIX20 M1 PO (10:27)
[2017-01-28] MEDS ORDERED: HUMALOG100 UNITS/ (10:46)
[2017-01-28] MEDS ORDERED: MUCINEX600 M1 PO (13:12)
== END 2017-01-07 13:33 | DRG 682 ==
LOC: EDMED 03:35 → EMR2 05:38 → PCUB 09:32
PROVIDERS: Emergency Medicine; Internal Medicine Critical Care Medicine; ADMIT Internal Medicine
PROC: 30233N1 Transfusion of Nonautologous Red Blood Cells into Peripheral Vein, Percutaneous Approach (ICD-10-PCS; principal; 2017-01-04)
PROC: B245ZZZ Ultrasonography of Left Heart (ICD-10-PCS; 2017-01-04)
DX: N17.9 Acute kidney failure, unspecified (principal); J96.01 Acute respiratory failure with hypoxia; G93.40 Encephalopathy, unspecified; J96.21 Acute and chronic respiratory failure with hypoxia; N39.0 Urinary tract infection, site not specified; I50.32 Chronic diastolic (congestive) heart failure; I11.0 Hypertensive heart disease with heart failure; E11.65 Type 2 diabetes mellitus with hyperglycemia; M06.9 Rheumatoid arthritis, unspecified; D64.9 Anemia, unspecified; I48.0 Paroxysmal atrial fibrillation; E87.5 Hyperkalemia; I25.10 Atherosclerotic heart disease of native coronary artery without angina pectoris; F32.9 Major depressive disorder, single episode, unspecified; F41.9 Anxiety disorder, unspecified; Z95.5 Presence of coronary angioplasty implant and graft; Z95.1 Presence of aortocoronary bypass graft; Z86.73 Personal history of transient ischemic attack (TIA), and cerebral infarction without residual deficits; Z82.49 Family history of ischemic heart disease and other diseases of the circulatory system; I27.2 Other secondary pulmonary hypertension; S81.802A Unspecified open wound, left lower leg, initial encounter; Z66 Do not resuscitate; Z79.01 Long term (current) use of anticoagulants; Z79.82 Long term (current) use of aspirin; Z79.51 Long term (current) use of inhaled steroids; Z79.4 Long term (current) use of insulin; Z79.899 Other long term (current) drug therapy
CPT/HCPCS: C8924; J0456; J0696; J1815; J1940; J2543; J3370; J7030; J7050; P9016